=== PATIENT | female | born 1980 | race African-American/Black ===

== ENCOUNTER 2020-11-03 13:53 | Emergency (ER) | payer MEDICAID, OTHER ==
[~2020-11-03] VITALS: Ht 157.5 cm; Wt 81.6 kg
[2020-11-03 14:15] VITALS: BP 113/77
[2020-11-03] MEDS ORDERED: IBUPROFEN 800 MG TAB PO ONE (15:00)
== END 2020-11-03 15:56 | disposition home or self-care (01) ==
LOC: ER 13:53
DX: S16.1XXA Strain of muscle, fascia and tendon at neck level, initial encounter (principal); S29.012A Strain of muscle and tendon of back wall of thorax, initial encounter; V43.52XA Car driver injured in collision with other type car in traffic accident, initial encounter; Y93.89 Activity, other specified; Y92.488 Other paved roadways as the place of occurrence of the external cause; Y99.8 Other external cause status
CPT/HCPCS: 72070

== ENCOUNTER 2024-08-20 20:51 | Emergency (ER) | payer MEDICAID, OTHER ==
[~2024-08-20] VITALS: Ht 157.5 cm; Wt 95.4 kg
--- NOTE | 2024-08-20 21:00 | ECG ---
[facility] Test Date: 2024-08-20 Test Time: 20:59:17 Pat Name: KEVEN PHILLIPS Department: ER Room: Gender: F Product Development Specialist: LADAN : 1980 Requested By: STEPHEN WERNER Order Number: [id number] Reading MD: Bob Malcolm Measurements Intervals [place] Rate: 115 P: 80 [place]: 149 QRS: 48 QRSD: 96 T: 59 QT: 328 QTc: 454 Interpretive Statements Sinus tachycardia Electronically Signed On 08-23-2024 13:05:20 PST by Bob Malcolm Please click the below link to view image of tracing.
--- NOTE | 2024-08-20 21:16 | ED.PDOC ---
HPI Comments 43-year-old female who came to ER due to chest pains. Patient has history of thyroid disease, but has poor compliance to her medications. Two weeks she has been sick with flu-like symptoms, fever, chills, headaches, congestion, cough, myalgia, weakness, throat discomfort, shortness of breath, and chest pains and palpitations. Chief Complaint: Chest Pain Time Seen by MD: 21:16 Primary Care Provider: JA Reviewed Notes: Nurses Notes Allergies: Coded Allergies: NO KNOWN ALLERGIES (Unverified , 11/03/20) Home Meds Active Scripts Dextromethorphan-Guaifenesin (Robitussin-Dm) 10 Ml Sr, 10 ML GT Q6HP PRN for 7 Days, #100 SYP Prov:STEPHEN WERNER MD 08/21/24 Azithromycin (Azithromycin) 500 Mg Tab, 1 TAB PO DAILY for 7 Days, #7 TAB Prov:STEPHEN WERNER MD 08/21/24 Information Source: Patient Mode of Arrival: Ambulatory Severity: Moderate Timing: Weeks Duration: Intermittent Prehospital treatment: None Location: Substernal Associated Signs and Symptoms: SOB, Palpitations Past Medical History PAST MEDICAL HISTORY: Thyroid Surgical History: Denies all surgeries 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 Family History Family History: Reviewed,noncontributory to illness Social History Smoker: Non-Smoker Alcohol: Denies ETOH Use Drugs: Denies Drug Use Lives In: Home Constitutional: reports: chills, fatigue, fever, weakness; denies: diaphoresis, malaise, sweats, others EENTM: reports: throat pain; denies: blurred vision, double vision, ear bleeding, ear discharge, ear drainage, ear pain, ear ringing, eye pain, eye redness, hearing loss, mouth pain, mouth swelling, nasal discharge, nose bleeding, nose congestion, nose pain, photophobia, tearing, throat swelling, voice changes, others Respiratory: reports: cough, SOB at rest, shortness of breath; denies: hemoptysis, orthopnea, SOB with excertion, stridor, wheezing, others Cardiovascular: reports: chest pain, dizzy spells, palpitations; denies: diaph oresis, Dyspnea on exertion, edema, irregular heart beat, left arm pain, lightheadedness, PND, syncope, others Gastrointestinal: denies: abdomen distended, abdominal pain, blood streaked bowels, constipated, diarrhea, dysphagia, difficulty swallowing, hematemesis, melena, nausea, poor appetite, poor fluid intake, rectal bleeding, rectal pain, vomiting, others Genitourinary: denies: abnormal vagina bleeding, burning, dyspareunia, dysuria, flank pain, frequency, hematuria, incontinence, pain, , vagina discharge, urgency, others Neurological: denies: dizziness, fainting, headache, left sided numbness, left sided weakness, numbness, paresthesia, pre-existing deficit, right sided numbness, right sided weakness, seizure, speech problems, tingling, tremors, weakness, others Musculoskeletal: denies: back pain, gout, joint pain, joint swelling, muscle pain, muscle stiffness, neck pain, others Integumetry: denies: bruises, change in color, change in hair/nails, dryness, laceration, lesions, lumps, rash, wounds, others Allergic/Immunocompromised: denies: Difficulty Healing, Frequent Infections, Hives, Itching, others Hematologic/Lymphatic: denies: anemia, blood clots, easy bleeding, easy bruising, swollen glands, others Endocrine: denies: excessive hunger, excessive sweating, excessive thirst, excessive urination, flushing, intolerance to cold, intolerance to heat, unexplained weight gain, unexplained weight loss, others Psychiatric: denies: anxiety, bipolar disorder, depression, hopeless, panic disorder, schizophrenia, sleepless, suicidal, others Physical Exam General Appearance: No Apparent Distress, Normal HEENT: Normal ENT Inspection, Pharynx Normal, TMs Normal Neck: Full Range of Motion, Non-Tender, Normal, Normal Inspection Respiratory: Chest Non-Tender, Lungs Clear, No Accessory Muscle Use, No Respiratory Distress, Normal Breath Sounds Cardiovascular: No Edema, No JVD, No Murmur, No Gallop, Normal Peripheral Pulses, Regular Rate/Rhythm Breast Exam: Deferred Gastrointestinal: No Organomegaly, Non Tender, No Pulsatile Mass, Normal Bowel Sounds, Soft Genitalia: Deferred Pelvic: Deferred Rectal: Deferred Extremities: No calf tenderness, Normal capillary refill, Normal inspection, Normal range of motion, Non-tender, No pedal edema Musculoskeletal : Apperance: Normal Neurologic: Alert, trap operator II-XII nml as Tested, No Motor Deficits, Normal Affect, Normal Mood, No Sensory Deficits Cerebellar Function: Normal Reflexes: Normal Skin: Dry, Normal Color, Warm Lymphatic: No Adenopathy EKG EKG : Pulse Rate (adult): 115 Cardiac Rhythm: ST Was a procedure done? Was a procedure done?: No CP Differential Dx Differential Diagnosis: Angina, Anxiety / Panic Attack, Hyperthyroidism, PSVT, Sinus Tachycardia Differential Diagnosis: Angina, Chest Wall Pain, Costochondritis, Esophageal reflux/spasm, Gastritis, Myocardial Infarction X-Ray, Labs, Meds, VS Vital Signs Date Time Temp Pulse Resp B/P (MAP) Pulse Ox O2 Delivery O2 Flow Rate FiO2 08/21/24 01:30 91 18 97 Room Air* 0 21 08/21/24 01:30 99.1 91 18 122/72 (89) 97 99.1 08/21/24 00:13 90 08/20/24 22:00 113 08/20/24 21:16 115 08/20/24 20:59 115 08/20/24 20:56 99.5 115 18 135/88 (104) 99 Lab Test 08/20/24 21:58 08/20/24 21:06 Range/Units Troponin I High Sensitivity 7 7 </=34 ng/L White Blood Count 11.4 H 4.4-10.8 10^3/uL Red Blood Count 4.46 4.0-5.20 10^6/uL Hemoglobin 11.3 L 12.2-16.2 g/dL Hematocrit 35.8 L 36.0-46.0 % Mean Corpuscular Volume 80.2 80.0-100.0 fL Mean Corpuscular Hemoglobin 25.4 L 28.0-32.0 pg Mean Corpuscular Hemoglobin Concent 31.7 L 32.0-36.0 g/dL Red Cell Distribution Width 13.9 11.8-14.3 % Platelet Count 413 140-450 10^3/uL Mean Platelet Volume 8.0 6.9-10.8 fL Neutrophils (%) (Auto) 64.5 37.0-80.0 % Lymphocytes (%) (Auto) 22.8 10.0-50.0 % Monocytes (%) (Auto) 7.1 0.0-12.0 % Eosinophils (%) (Auto) 5.2 0.0-7.0 % Basophils (%) (Auto) 0.4 0.0-2.0 % Neutrophils # (Auto) 7.3 1.6-8.6 10 ^3/uL Lymphocytes # (Auto) 2.6 0.4-5.4 10 ^3/uL Monocytes # (Auto) 0.8 0-1.3 10 ^3/uL Eosinophils # (Auto) 0.6 0-0.8 10 ^3/uL Basophils # (Auto) 0.1 0-0.2 10 ^3/uL Nucleated Red Blood Cells 0.0 % D-Dimer, Quantitative 0.35 0.0-0.49 mg/L FEU Sodium Level 138 136-145 mmol/L Potassium Level 3.1 L 3.5-5.1 mmol/L Chloride Level 107 98-107 mmol/L Carbon Dioxide Level 25 20-31 mmol/L Anion Gap 6 5-15 Blood Urea Nitrogen < 5 L 9-23 mg/dL Creatinine 0.72 0.550-1.02 mg/dL Glomerular Filtration Rate Calc 107 >90 mL/min BUN/Creatinine Ratio 6.9 L 10.0-20.0 Serum Glucose 119 H 74-106 mg/dL Calcium Level 9.0 8.7-10.4 mg/dL Total Bilirubin 0.2 0.2-1.0 mg/dL Aspartate Amino Transferase (AST) 33 13-40 U/L Alanine Aminotransferase (ALT) 33 7-40 U/L Alkaline Phosphatase 87 46-116 U/L Total Protein 7.1 5.7-8.2 g/dL Albumin 4.0 3.2-4.8 g/dL Thyroid Stimulating Hormone (TSH) < 0.01 L 0.55-4.78 uIU/mL Free Thyroxine (T4) Calculated Pending Current Medications Medications (Trade) Dose Ordered Sig/Jose Route Start Time Stop Time Status Last Admin Potassium Chloride (Klor-Con Tablet) 20 meq ONCE ONCE PO 08/21/24 00:15 08/21/24 00:16 DC 08/21/24 01:32 Time of 1ST Reevaluation: 21:12 Reevaluation 1ST: Unchanged Time of 2ND Reevaluation: 22:00 Reevaluation 2ND: Improved Patient Education/Counseling: Diagnosis, Treatment Family Education/Counseling: No Family Present Departure 1 Departure Time of Disposition: 22:30 Impression: Primary Impression: Atypical chest pain Additional Impression: Hyperthyroidism Disposition: 01 HOME / SELF CARE / HOMELESS Condition: Stable e-Prescriptions Dextromethorphan-Guaifenesin (Robitussin-Dm) 10 Ml Sr 10 ML GT Q6HP PRN for 7 Days, #100 SYP Prov: STEPHEN WERNER MD 08/21/24 Azithromycin (Azithromycin) 500 Mg Tab 1 TAB PO DAILY for 7 Days, #7 TAB Prov: STEPHEN WERNER MD 08/21/24 Discharged With: Self Critical Care Note Critical Care Time?: Yes (35 min-critical care time only) Critical care comment: Tachycardic Stability Stability form required: No Heart Score Heart Score: Heart Score Response (Comments) Value History Slightly Suspicious 0 EKG Repolarization Disturb 1 Age <45 0 Risk Factors 1 or 2 risk factors 1 Troponin Normal limit 0 Total 2 I personally scribed for STEPHEN WERNER MD ([email or web address]) on 08/20/24 at 21:16. Electronically submitted by Adarsh Sue ([email or web address]). I personally scribed for STEPHEN WERNER MD ([email or web address]) on 08/20/24 at 21:16. Electronically submitted by Adarsh Sue ([email or web address]). STEPHEN WERNER MD Aug 20, 2024 21:16
[2024-08-20 21:26] LABS: Basophils % (auto) 0.4 % (0.0-2.0); Eosinophils # (auto) 0.6 10 ^3/uL (0-0.8); Hemoglobin 11.3 g/dL (12.2-16.2); Lymphocytes # (auto) 2.6 10 ^3/uL (0.4-5.4); Monocytes # (auto) 0.8 10 ^3/uL (0-1.3)
[2024-08-20 21:28] LABS: Basophils # (auto) 0.1 10 ^3/uL (0-0.2); Eosinophils % (auto) 5.2 % (0.0-7.0); Hematocrit 35.8 % (36.0-46.0); Lymphocytes % (auto) 22.8 % (10.0-50.0); Mean Corpuscular Hemoglobin 25.4 pg (28.0-32.0); Mean Corpuscular Hgb Conc. 31.7 g/dL (32.0-36.0); Mean Corpuscular Volume 80.2 fL (80.0-100.0); Monocytes % (auto) 7.1 % (0.0-12.0); Neutrophils # (auto) 7.3 10 ^3/uL (1.6-8.6); Neutrophils % (auto) 64.5 % (37.0-80.0); Platelet Count (auto) 413 10^3/uL (140-450); Red Blood Cells 4.46 10^6/uL (4.0-5.20); Red Cell Distribution Width 13.9 % (11.8-14.3); White Blood Cell 11.4 10^3/uL (4.4-10.8)
--- NOTE | 2024-08-20 21:37 | DVH ---
EXAMINATION: AP portable chest radiograph CLINICAL HISTORY: chest pain COMPARISON: None TECHNIQUE: Single upright view of the chest FINDINGS: Possible bilateral perihilar peribronchial thickening. Findings may represent bronchitis. IMPRESSION: 1. Bilateral perihilar peribronchial thickening findings may represent bronchitis. HS:Y
[2024-08-20 21:41] LABS: Alanine Aminotransferase 33 U/L (7-40); Alkaline Phosphatase 87 U/L (46-116); Anion Gap 6 (5-15); Aspartate Aminotransferase 33 U/L (13-40); Carbon Dioxide 25 mmol/L (20-31); Chloride 107 mmol/L (98-107); Sodium 138 mmol/L (136-145); Total Protein 7.1 g/dL (5.7-8.2)
[2024-08-20 21:50] LABS: BUN/Creatinine Ratio 6.9 (10.0-20.0); Bilirubin, Total 0.2 mg/dL (0.2-1.0); Blood Urea Nitrogen < 5 mg/dL (9-23); Glucose 119 mg/dL (74-106); Potassium 3.1 mmol/L (3.5-5.1)
[2024-08-21] MEDS ORDERED: AZIT500T66 PO (01:16)
[2024-08-21 01:30] VITALS: BP 122/72; PULSE 91; RESP 18; TEMP 99.1; O2SAT 97
[2024-08-21] MEDS: POTASSIUM CHL 20 Meq TABLET PO ONE (01:32)
[2024-08-21] MEDS ORDERED: DEXT1SYP9 GT (01:34)
--- NOTE | 2024-08-22 15:26 | ECG ---
[facility] Test Date: 2024-08-20 Test Time: 22:00:02 Pat Name: KEVEN PHILLIPS Department: ER Room: Gender: F Overnight Babysitter: SMUAYA : 1980 Requested By: STEPHEN WERNER Order Number: [id number] Reading MD: Bob Malcolm Measurements Intervals [place] Rate: 113 P: 76 MI: 141 QRS: 44 QRSD: 94 T: 43 QT: 330 QTc: 453 Interpretive Statements Sinus tachycardia Electronically Signed On 08-23-2024 13:05:32 PST by Bob Malcolm Please click the below link to view image of tracing.
--- NOTE | 2024-08-22 15:26 | ECG ---
[facility] Test Date: 2024-08-21 Test Time: 00:13:36 Pat Name: KEVEN PHILLIPS Department: ER Room: Gender: F Process Control Supervisor: SUMAYA : 1980 Requested By: STEPHEN WERNER Order Number: [id number] Reading MD: Bob Malcolm Measurements Intervals [place] Rate: 90 P: 43 IN: 130 QRS: 36 QRSD: 94 T: 47 QT: 369 QTc: 452 Interpretive Statements Sinus rhythm Electronically Signed On 08-23-2024 13:05:41 PST by Bob Malcolm Please click the below link to view image of tracing.
== END 2024-08-21 01:42 | disposition home or self-care (01) ==
LOC: ER 20:51
DX: R07.89 Other chest pain (principal); E05.90 Thyrotoxicosis, unspecified without thyrotoxic crisis or storm; R51.9 Headache, unspecified; M79.10 Myalgia, unspecified site; R00.2 Palpitations
CPT/HCPCS: 36415; 71045; 80053; 84439; 84443; 84484; 85025; 85379; 93005

== ENCOUNTER 2025-01-02 17:49 | Emergency (ER) | payer MEDICAID ==
[~2025-01-02] VITALS: Ht 157.5 cm; Wt 94.2 kg
[~2025-01-02 17:49] MED LIST: AZIT500T66 PO; DEXT1SYP9 GT
[2025-01-02 17:57] VITALS: BP 153/85; PULSE 92; RESP 16; TEMP 98.7; O2SAT 96
--- NOTE | 2025-01-02 19:09 | DVH ---
Indication: 2ND DIGIT PAIN Technique: 3 views right hand Comparison: None FINDINGS/IMPRESSION: No radiographic evidence for acute fracture or dislocation. Soft tissue edema surrounding the 2nd dig it distal phalanx. 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
[2025-01-02] MEDS ORDERED: DOXY100C4 PO (20:00)
[2025-01-02] MEDS ORDERED: IBUP-1456 PO (20:00)
--- NOTE | 2025-01-02 20:00 | ED.PDOC ---
History of Present Illness(SKN HPI Comments PT REPORTS PAIN TO HER RIGHT POINTER FINGER THAT NOW RADIATES UP HER ARM. PT DENIES TRUAMA OR INJURY TO CAUSE PAIN. NO OBVIOUS DEFORMITY OR WOUND NOTED DENIES NUMBNESS AND WEAKNESS Chief Complaint: Upper Extremity Time Seen by MD: 18:04 Primary Care Provider: JA History of Present Illness: Nurses Notes, Medications, Allergies Allergies: Coded Allergies: NO KNOWN ALLERGIES (Unverified , 11/03/20) Home Meds Active Scripts Ibuprofen (Ibuprofen) 800 Mg Tab, 800 MG PO Q8HP PRN for 6 Days, #18 TAB Prov:DERIK ZAPATA SERVICE ASSOCIATE 01/02/25 Doxycycline Hyclate (Doxycycline Hyclate) 100 Mg Cap, 100 MG PO BID for 7 Days, #14 CAP Prov:DERIK ZAPATA SERVICE ASSOCIATE 25 Dextromethorphan-Guaifenesin (Robitussin-Dm) 10 Ml Sr, 10 ML GT Q6HP PRN for 7 Days, #100 SYP Prov:STEPHEN WERNER MD 08/21/24 Azithromycin (Azithromycin) 500 Mg Tab, 1 TAB PO DAILY for 7 Days, #7 TAB Prov:STEPHEN WERNER MD 08/21/24 Information Source: Patient Mode of Arrival: Ambulatory Past Medical History PAST MEDICAL HISTORY: Thyroid Surgical History: Denies all surgeries 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 TRUCK DESPATCHER Hx Family History Family History: Reviewed,noncontributory to illness Social History Smoker: Non-Smoker Alcohol: Denies ETOH Use Drugs: Denies Drug Use Lives In: Home Constitutional: denies: chills, diaphoresis, fatigue, fever, malaise, sweats, weakness, others EENTM: denies: blurred vision, double vision, ear bleeding, ear discharge, ear drainage, ear pain, ear ringing, eye pain, eye redness, hearing loss, mouth pain, mouth swelling, nasal discharge, nose bleeding, nose congestion, nose pain, photophobia, tearing, throat pain, throat swelling, voice changes, others Respiratory: denies: cough, hemoptysis, orthopnea, SOB at rest, shortness of breath, SOB with excertion, stridor, wheezing, others Cardiovascular: denies: chest pain, dizzy spells, diaphoresis, Dyspnea on exertion, edema, irregular heart beat, left arm pain, lightheadedness, palpitations, PND, syncope, others Gastrointestinal: denies: abdomen distended, abdominal pain, blood streaked bowels, constipated, diarrhea, dysphagia, difficulty swallowing, hematemesis, melena, nausea, poor appetite, poor fluid intake, rectal bleeding, rectal pain, vomiting, others Genitourinary: denies: abnormal vagina bleeding, burning, dyspareunia, dysuria, flank pain, frequency, hematuria, incontinence, pain, , vagina discharge, urgency, others Neurological: denies: dizziness, fainting, headache, left sided numbness, left sided weakness, numbness, paresthesia, pre-existing deficit, right sided numbness, right sided weakness, seizure, speech problems, tingling, tremors, weakness, others Integumetry: reports: rash (RIGHT 4TH DIGIT), wounds; denies: bruises, change in color, change in hair/nails, dryness, laceration, lesions, lumps, others Allergic/Immunocompromised: denies: Difficulty Healing, Frequent Infections, Hives, Itching, others Hematologic/Lymphatic: denies: anemia, blood clots, easy bleeding, easy bruising, swollen glands, others Endocrine: denies: excessive hunger, excessive sweating, excessive thirst, excessive urination, flushing, intolerance to cold, intolerance to heat, unexplained weight gain, unexplained weight loss, others Psychiatric: denies: anxiety, bipolar disorder, depression, hopeless, panic disorder, schizophrenia, sleepless, suicidal, others Physical Exam General Appearance: No Apparent Distress, Normal HEENT: Pharynx Normal Neck: Full Range of Motion, Non-Tender Respiratory: Lungs Clear, No Respiratory Distress, Normal Breath Sounds Cardiovascular: No Murmur, Normal Peripheral Pulses, Regular Rate/Rhythm Breast Exam: Deferred Gastrointestinal: Non Tender, Soft Genitalia: Deferred Pelvic: Deferred Rectal: Deferred Extremities: Normal capillary refill, Normal inspection, Normal range of evelyn on, Non-tender, No pedal edema Musculoskeletal : Apperance: Normal Neurologic: Alert, type photography supervisor II-XII nml as Tested, No Motor Deficits, Normal Affect, Normal Mood, No Sensory Deficits Cerebellar Function: Normal Reflexes: Normal Skin: Dry, Normal Color, Warm, Wounds (RIGHT 4TH DIGIT DISTAL PHALANX WITH NOTED TRACE EDEMA AROUND CUTICLE AND FINGERTIP. MODERATE TENDERNESS PALPATED. NO NOTED DRAINAGE. STREAKING STRENGTH SENSORY MOTION INTACT CAP REFILL LESS THAN 3 SECONDS) Lymphatic: No Adenopathy Was a procedure done? Was a procedure done?: No Differential Diagnosis (INTG) Differential Diagnosis: Fracture, Hematoma, Puncture Wound Differential Diagnosis: Abscess X-Ray, Labs, Meds, VS Vital Signs Date Time Temp Pulse Resp B/P (MAP) Pulse Ox O2 Delivery O2 Flow Rate FiO2 01/02/25 17:57 97.8 92 16 153/85 (107) 96 97.8 Current Medications Medications (Trade) Dose Ordered Sig/Jose Route Start Time Stop Time Status Last Admin Ketorolac Tromethamine (Toradol Injection) 60 mg ONCE ONCE IM 01/02/25 19:30 01/02/25 19:31 DC 01/02/25 20:25 Ceftriaxone Sodium (Rocephin) 1,000 mg ONCE ONCE IM 01/02/25 20:00 01/02/25 20:01 DC 01/02/25 20:25 X-Ray, Labs, Meds, VS Comment SHOWS NO ACUTE FRACTURES DOES SHOW SOFT TISSUE TISSUE SWELLING AND ARTHRITIS OF THE WRIST JOINTS.. SECONDARY TO FINGER INFECTION. PATIENT GIVEN ROCEPHIN 1 G IM AND TORADOL 60 MG IM REPORTS IMPROVEMENT IN PAIN REQUESTING DISCHARGE AT THIS TIME. SCRIPT DOXYCYCLINE TWICE DAILY X7 DAYS. FOLLOW UP WITH HER PCP URGENT CARE OR BACK HERE FOR RE-EVALUATION IN 2 DAYS. MEDICATIONS PRESCRIBED SIDE EFFECTS DISCUSSED. ELEVATE EXTREMITY. ER RETURN PRECAUTIONS GIVEN PATIENT INDICATES UNDERSTANDING AGREES WITH DISCHARGE PLAN OF CARE. Time of 1ST Reevaluation: 19:58 Reevaluation 1ST: Improved Time of 2ND Reevaluation: 20:45 Reevaluation 2ND: Improved Patient Education/Counseling: Diagnosis, Treatment, Prognosis, Need For Follow Up Family Education/Counseling: Diagnosis, Treatment, Prognosis, Need For Follow Up Departure 1 Departure Time of Disposition: 20:45 Impression: Primary Impression: Infected finger Disposition: 01 HOME / SELF CARE / HOMELESS Condition: Stable e-Prescriptions Ibuprofen (Ibuprofen) 800 Mg Tab 800 MG PO Q8HP PRN for 6 Days, #18 TAB Prov: DERIK ZAPATA SERVICE ASSOCIATE 01/02/25 Doxycycline Hyclate (Doxycycline Hyclate) 100 Mg Cap 100 MG PO BID for 7 Days, #14 CAP Prov: DERIK ZAPATA SERVICE ASSOCIATE 01/02/25 Discharged With: Self Critical Care Note Critical Care Time?: No Stability Stability form required: No BENNY,DERIK SERVICE ASSOCIATE January 02, 2025 20:00
[2025-01-02] MEDS: KETOROLAC TROMETH 60MG/2ML VIAL IM ONE (20:25)
[2025-01-02] MEDS: cefTRIAXone SOD 1,000 MG VL IM ONE (20:25)
== END 2025-01-02 21:15 | disposition home or self-care (01) ==
LOC: ER 17:49
DX: L08.9 Local infection of the skin and subcutaneous tissue, unspecified (principal); E07.9 Disorder of thyroid, unspecified
CPT/HCPCS: 73130; 96372; 99284; J0696; J1885